=== PATIENT | male | born 1955 | race Caucasian/White ===

== ENCOUNTER → 2018-08-17 | Outpatient (CLI) | payer OTHER ==
[~2018-08-17] MED LIST: ALLOPURINOL300 MG PO; ASPIRIN 32325 MG/TAB PO; GLIPIZIDE5 MG PO; HCTZ-METOPROLOL1 TA2 PO; JANUMET 500 MG-1 TA1 PO; METFORMIN500 MG PO; SIMVASTATIN40 MG PO
== END ==
LOC: COL.LAB 11:28
DX: Z01.812 Encounter for preprocedural laboratory examination (principal); Z96.651 Presence of right artificial knee joint

== ENCOUNTER 2023-10-29 13:03 | Outpatient (RCR) | payer BC, MEDICARE ==
[~2023-10-29 13:03] MED LIST changes: +AMBIEN 10MG10 MG PO; +AMOXICILLIN 8751 TAB PO; +ASPIRIN E.C. 8181 MG PO; +BRILINTA90 MG PO; +DELATESTRYL200 MG/ML IM; +DOXYCYCLINE HY100 MG PO; +FARXIGA10 PO; +GLUCOPHAGE1000 MG PO; +GLUCOTROL 5M5 MG/TAB PO; +HYDRODIURIL50 MG PO; +IMDUR 30MG30 MG/TAB PO; +LIPITOR 40MG TA40 MG PO; +LIPITOR 80MG80 MG PO; +MOBIC15 MG PO; +NITROSTAT0.4 MG/TAB SL; +PRINIVIL10 MG PO; +TOPROL XL 25MG25 MG PO; +TRULICITY3 MG/0.5 M SQ; +ULTRAM 50MG TAB50 MG PO; +ZYLOPRIM 300MG300 MG PO
== END 2023-10-30 | disposition home or self-care (01) ==
LOC: COL.CR
DX: Z48.812 Encounter for surgical aftercare following surgery on the circulatory system (principal); Z95.5 Presence of coronary angioplasty implant and graft

== ENCOUNTER 2023-11-28 12:15 | Outpatient (RCR) | payer BC, MEDICARE | END 2023-11-30 | disposition still patient (30) | LOC: COL.CR | DX: Z48.812 Encounter for surgical aftercare following surgery on the circulatory system (principal); Z95.5 Presence of coronary angioplasty implant and graft ==

== ENCOUNTER 2023-12-05 14:52 | Outpatient (RCR) | payer BC, MEDICARE | END 2023-12-05 15:00 | disposition still patient (30) | LOC: COL.CR 14:52 | DX: Z48.812 Encounter for surgical aftercare following surgery on the circulatory system (principal); Z95.5 Presence of coronary angioplasty implant and graft ==